=== PATIENT | female | born 1935 | race Caucasian/White ===

== ENCOUNTER → 2016-10-13 | Outpatient (CLI) | payer MEDICARE ==
[~2016-10-13] MED LIST: HYDR25TA6 PO; OMEP-110 PO; POTASSIUM
== END | disposition home or self-care (01) ==
LOC: RAD 13:44
PROVIDERS: ATTEND Family Medicine
DX: E04.1 Nontoxic single thyroid nodule (principal)
CPT/HCPCS: 36415; 70491; 82565